=== PATIENT | female | born 1955 | race Caucasian/White ===

== ENCOUNTER 2018-07-17 06:18 | Day surgery (SDC) | payer BC ==
[2018-07-16 12:15] VITALS: BP 121/71
[2018-07-16 12:16] LABS: BASOPHILS % (AUTO) 1.2 % (0.0-5.0); EOSINOPHILS % (AUTO) 3.3 % (0.0-8.0); HEMATOCRIT 41.3 % (36-48); LYMPHOCYTES % (AUTO) 38.3 % (21.0-51.0); MEAN CORPUSCULAR HEMOGLOBIN 28.3 pg (27.0-33.0); MEAN CORPUSCULAR HGB CONC 33.3 g/dL (32.0-36.0); MEAN CORPUSCULAR VOLUME 85.1 fL (79-99); MONOCYTES % (AUTO) 8.7 % (3.0-13.0); NEUTROPHILS % (AUTO) 48.5 % (40.0-77.0); PLATELET COUNT (AUTO) 320 K/uL (130-400); RED BLOOD CELL COUNT(AUTO) 4.85 MIL/uL (4.00-5.50); RED CELL DISTRIBUTION WIDTH 14.2 % (11.0-15.5); WHITE BLOOD COUNT (AUTO) 6.4 K/uL (4.8-10.8)
[2018-07-16 12:23] LABS: CREATININE 0.9 mg/dL (0.5-1.5); POTASSIUM 4.2 mmol/L (3.5-5.1)
[2018-07-17] VITALS (14 sets, daily range): BP systolic 108–140; BP diastolic 54–67
[~2018-07-17] VITALS: Ht 162.6 cm; Wt 85.7 kg
[~2018-07-17 06:18] MED LIST: ALBU8.5H8 IH; ALBUTERAL NEB NEB; AMLO5TAB9 PO; ASCO10007 PO; CHOL50004 PO; LOSA50TA64 PO; MONT10TA24 PO; TRAM50TA4 PO
[2018-07-17] MEDS ORDERED: LACTATED RINGERS 1000ML 1,000 ML IV ONE (07:05)
[2018-07-17] MEDS: CEFAZOLIN SODIUM 1 GM VIAL ONE ×2 (07:20→10:12)
--- NOTE | 2018-07-17 07:23 | NUR ---
POTENTIAL FOR INFECTION: NO SHAVING NEEDED TO LEFT SHOULDER BUT WIPED DOWN WITH CLEMENTINA PER DEVON HOLGUIN.
[2018-07-17] MEDS ORDERED: MEPERIDINE-PF 25 MG/ML SYG ONE ×2 (07:29→12:16)
[2018-07-17] MEDS ORDERED: EPINEPHRINE 1 MG/ML 30ML VIAL IJ ONE (08:53)
[2018-07-17] MEDS ORDERED: LIDOCAINE PF 2% 5ML ABBOJECT ONE (09:08)
[2018-07-17] MEDS ORDERED: GLYCOPYRROLATE 1 MG/5 ML SYRINGE ONE ×2 (09:08→10:35)
[2018-07-17] MEDS ORDERED: SUCCINYLCHOLINE 200MG/10ML SYR ONE ×2 (09:08→09:11)
[2018-07-17] MEDS ORDERED: DEXAMETHASONE SOD PHOSPHATE 10MG/ML 1ML VIAL ONE (09:08)
[2018-07-17] MEDS ORDERED: NEOSTIGMINE 5MG/5ML SYR IV ONE (09:09)
[2018-07-17] MEDS ORDERED: PROPOFOL 10 MG/ML 20ML VIAL IV ONE (09:09)
[2018-07-17] MEDS ORDERED: ONDANSETRON HCL 4 MG/2 ML VIAL ONE (09:09)
[2018-07-17] MEDS ORDERED: MIDAZOLAM HCL 1 MG/ML 2ML VIAL ONE (09:09)
[2018-07-17] MEDS ORDERED: ROCURONIUM 10MG/1ML SYR 10 MG/ML ML ONE (09:09)
[2018-07-17] MEDS ORDERED: FENTANYL CITRATE PF 50 MCG/1 ML 2ML VIAL ONE (09:11)
[2018-07-17] MEDS ORDERED: ROPIVACAINE 0.5% 5MG/ML 30ML IJ ONE (10:01)
[2018-07-17] MEDS ORDERED: EPHEDRINE SULFATE 50 MG/ML AMPULE ONE (10:11)
[2018-07-17] MEDS ORDERED: NAPR-1192 PO (12:00)
[2018-07-17] MEDS ORDERED: HYDR-4457 PO (12:00)
[2018-07-17] MEDS ORDERED: CEPH500B PO (12:00)
[2018-07-17] MEDS ORDERED: IPRATROPIUM/ALBUTEROL SULFATE 3 ML SOLUTION IH ONE (12:58)
--- NOTE | 2018-07-17 13:10 | NUR ---
PATIENT RECEIVED PATIENT FROM PACU, S/ P LEFT SHOULDER ARTHROSCOPY, LEFT SHOULDER SMALL TELFA DRESSING COVERED WITH OPSITE X 3 . ARM SLING IN PLACE. PT HAD A NERVE BLOCK TO LEFT SHOULDER . PT STATES FEELS ARM NUMB, STRONG RADIAL PULSE, WARM TO TOUCH, PT ABLE TO MOVE FINGERS . VS STABLE ON ARRIVAL. PT DENIED ANY PAIN OR DISCOMFORTS. PT AWAKE AND ALERT
--- NOTE | 2018-07-17 13:49 | NUR ---
dc dc instructions given to pt / spouse with rx x 3, instructed on new med regimen and possible side effects. instructed to f/u with dr. shirley on 07-19-18 , to keep dressing dry and intact and keep arm sling in place. pt awake and alert, denied any pain or discomforts. pt getting dress with nurse aid assistance. will go when ready. instructed patient that she has to void 6-8 hours if unable to void to call md or go to ER. PT verbalized understanding. piv removed, catheter intact, site asymtomatic.
--- NOTE | 2018-07-17 13:55 | NUR ---
dc pt dc home via [facility], accompanied by spouse
== END 2018-07-17 13:55 | disposition home or self-care (01) ==
LOC: DAH 06:18
PROVIDERS: ATTEND Orthopaedic Surgery
DX: M75.42 Impingement syndrome of left shoulder (principal); M75.22 Bicipital tendinitis, left shoulder; S43.492A Other sprain of left shoulder joint, initial encounter; X58.XXXA Exposure to other specified factors, initial encounter; Y93.9 Activity, unspecified; Y92.89 Other specified places as the place of occurrence of the external cause; Y99.9 Unspecified external cause status; Z68.33 Body mass index [BMI] 33.0-33.9, adult; Z79.899 Other long term (current) drug therapy; I10 Essential (primary) hypertension; G89.29 Other chronic pain; I11.9 Hypertensive heart disease without heart failure; J44.9 Chronic obstructive pulmonary disease, unspecified; Z82.49 Family history of ischemic heart disease and other diseases of the circulatory system; E66.9 Obesity, unspecified; Z98.890 Other specified postprocedural states; I25.10 Atherosclerotic heart disease of native coronary artery without angina pectoris; R06.02 Shortness of breath
CPT/HCPCS: 29823; 29824; 29826; 36415; 80048; 85025; 94640; 96374; A4218; A4565; A4600; A4649 ×2; A4930; A6204; G0168; J0171; J0330 ×2; J0690; J1100; J2001; J2175 ×2; J2250; J2405; J2704; J2710; J2795; J3010; J3490 ×3; J7030; J7120